=== PATIENT | male | born 1980 | race Caucasian/White ===

== ENCOUNTER 2020-08-19 04:21 | Emergency (ER) | payer MEDICAID ==
[~2020-08-19] VITALS: Ht 177.8 cm; Wt 77.3 kg
[~2020-08-19 04:21] MED LIST: ATI1T PO; FOLI1TAB16 PO; MULT-933 PO; NICO-631 TD; SERT-432 PO; THI100T PO
[2020-08-19] MEDS ORDERED: normal saline 1000ml 1,000 ML IV ONE (04:50)
[2020-08-19] MEDS ORDERED: diazepam inj 5 MG/ML inj. IV ONE (04:50)
[2020-08-19] MEDS ORDERED: ondansetron/PF 4mg/2ml inj IV ONE (05:05)
[2020-08-19 05:21] LABS: ALANINE AMINOTRANSFERASE 117 U/L (12-78); ALBUMIN 3.5 G/DL (3.4-5.0); ALBUMIN/GLOBULIN RATIO 0.9 (1.1-1.5); ALKALINE PHOSPHATASE 66 IU/L (46-116); ANION GAP 13 (8-16); ASPARTATE AMINO TRANSFERASE 136 U/L (10-37); BILIRUBIN,TOTAL 0.4 MG/DL (0.1-1.0); BLOOD UREA NITROGEN 8 MG/DL (7-18); BUN/CREATININE RATIO 10.8 (5.4-32.0); CALCIUM 8.8 MG/DL (8.5-10.1); CHLORIDE 102 MMOL/L (99-107); CREATININE 0.74 MG/DL (0.60-1.10); GLUCOSE 81 MG/DL (70-104); LIPASE 251 U/L (73-393); POTASSIUM 3.6 MMOL/L (3.5-5.1); SODIUM 140 MMOL/L (135-145); TOTAL CARBON DIOXIDE 24.8 MMOL/L (24-32); TOTAL PROTEIN 7.2 G/DL (6.4-8.2); eGFR > 90 ML/MIN
[2020-08-19 05:49] VITALS: BP 125/91
== END 2020-08-19 05:51 | disposition home or self-care (01) ==
LOC: ER 04:21
DX: F10.239 Alcohol dependence with withdrawal, unspecified (principal); R11.2 Nausea with vomiting, unspecified; R10.84 Generalized abdominal pain; R10.13 Epigastric pain; F12.90 Cannabis use, unspecified, uncomplicated; Z72.89 Other problems related to lifestyle; Z79.899 Other long term (current) drug therapy; Y90.9 Presence of alcohol in blood, level not specified
CPT/HCPCS: 36415; 80053; 83690; 96361; 96374; 96375; 99284; J2405; J3360; J7030